=== PATIENT | male | born 1970 | race Caucasian/White ===

== ENCOUNTER 2019-07-03 | Emergency (ER) | payer SELFPAY ==
[2019-07-03] MEDS ORDERED: MOTRIN800 MG PO (06:33)
[2019-07-03] MEDS ORDERED: AMOXICILLIN500 MG PO (06:33)
== END 2019-07-03 07:02 | disposition home or self-care (01) | DRG 159 ==
DX: K04.7 Periapical abscess without sinus (principal); K02.9 Dental caries, unspecified; F17.210 Nicotine dependence, cigarettes, uncomplicated